=== PATIENT | female | born 1955 | race Caucasian/White ===

== ENCOUNTER 2022-10-15 08:57 | Emergency (ER) | payer OTHER, SELFPAY ==
[2022-10-15 09:03] VITALS: BP 170/79; PULSE 63; RESP 15; TEMP 36.5; O2SAT 99; BMI 27.7
--- NOTE | 2022-10-15 09:16 | ED.EXTPRO ---
HPI - Extremity Problem General Chief complaint: Extremity Problem,Nontraumatic Stated complaint: possible blood clot rt leg, sent by provider Time Seen by Provider: 10/15/22 09:02 Source: patient Mode of arrival: Ambulatory History of Present Illness HPI Narrative: 66-year-old female nonsmoker with no significant chronic medical history presents at the request of her primary care provider for evaluation of worsening right lower extremity pain and swelling. She states that she is been having pain and swelling for the past few days and denies any injury, recent travel or prior clot. She is had no fever or chills and denies other systemic complaints such as nausea, vomiting or diarrhea. She is had no chest pain, rapid heart rate or shortness of breath. She states the pain is worse when she ambulates and improves with rest. She had been seen and evaluated at an outside facility yesterday and had some blood work which was apparently unremarkable but there was a slightly elevated D-dimer and an ultrasound was obtained to rule out DVT which was unremarkable. After calling her primary care provider today stating that symptoms were she was directed here for evaluation. She does not have blood thinners or a known bleeding problems Related Data Previous Rx's Medication Instructions Recorded methocarbamol 500 mg tablet See Rx Instructions PO Q6-8H PRN 10/14/21 muscle spasm #10 tabs Allergies Allergy/AdvReac Type Severity Reaction Status Date / Time No Known Drug Allergies Allergy Verified 10/15/22 09:11 Review of Systems Review of Systems Narrative: GENERAL: Denies chills, fatigue, malaise, fever, sweats. HEENT: Denies sinus pain, ear pain, sore throat, difficulty swallowing, dizziness. RESPIRATORY: Denies dyspnea, cough, wheezing, hemoptysis, sputum. CARDIOVASCULAR: See HPI GASTROINTESTINAL: Denies nausea, vomiting, abdominal pain, diarrhea, constipation, melena. : Denies dysuria, frequency, incontinence, hematuria, urinary retention. MUSCULOSKELETAL: See HPI SKIN: Denies rash, skin lesions, or other NEUROLOGIC: Denies weakness, headache, numbness, change in speech, confusion, seizures, incoordination. PSYCHIATRIC: No concerning psychosocial issues. 12 point review of systems is negative except for those stated above Patient History Social History Smoking Status: Never smoker Smoking Status: Never smoker alcohol intake frequency: holidays/special occasions only Substance Use Type: does not use Exam Narrative Exam Narrative: GENERAL: [66] year old patient appears stated age. Well-developed patient, in mild distress. HEAD: Atraumatic. Normocephalic. EYES: Pupils equal round and reactive. Extraocular motions intact. No scleral icterus. No injection or drainage. ENT: Nose without bleeding, purulent drainage. Throat without erythema, tonsillar hypertrophy or exudate. Airway patent. NECK: Trachea midline. Non tender CARDIOVASCULAR: Regular rate and rhythm without murmurs, gallops, or rubs. RESPIRATORY: Clear to auscultation. Breath sounds equal bilaterally. No wheezes, rales, or rhonchi. GASTROINTESTINAL: Abdomen soft, non-tender, nondistended. EXTREMITIES: Right lower extremity swollen and most tender just superior to medial malleolus, there is ecchymosis noted and high suspicion of hematoma. Compartments are soft, neurovascularly intact. No knee pain, no pain, swelling or redness at any point, specifically no knee effusion, no medial thigh or lateral thigh pain, swelling, ecchymosis or erythema. BACK: Nontender without deformity or crepitance. No flank tenderness. NEURO: AOx3. SKIN: No rash or erythema of visible areas Initial Vital Signs Initial Vital Signs: Vital Signs Temperature 97.7 F 10/15/22 09:03 Pulse Rate 63 10/15/22 09:03 Respiratory Rate 15 10/15/22 09:03 Blood Pressure 170/79 H 10/15/22 09:03 Pulse Oximetry 99 10/15/22 09:03 Oxygen Delivery Method 10/15/22 09:03 Course Orders Ordered: ED Orders 10/15/22 09:28 BMP [Basic Metabolic Panel] Stat CBC Auto Diff [Complete Blood Count AUTO DIFF] Stat Prothrombin Time INR Stat 10/15/22 09:30 US periph venous low extrem rt Stat Vital Signs Vital signs: Vital Signs - 8 hr 10/15/22 09:03 Temperature 97.7 F Pulse Rate 63 Respiratory Rate 15 Blood Pressure 170/79 H Pulse Oximetry 99 Oxygen Delivery Method Room Air MDM - Extremity (Nontraumatic) Imaging Data US - DVT: Radiologist's Impression: [address] [address] Ultrasound Report Signed Patient: Nano Prieto MR#: [id number] : 1955 Acct:[id number] Age/Sex: 66 / F Date of Service: 10/15/22 Loc: ED Accession Number: [id number] ?? Procedure: US periph venous low extrem rt Ordering Provider: Rusty Peterson D.O. PROCEDURE:? US PERIPH VENOUS LOW EXTREM RT ? INDICATIONS:? WORSENING PAIN, EDEMA ? TECHNIQUE:? Real-time imaging, as well as color and pulse Doppler interrogation, were performed of the lower extremity deep veins from the inguinal ligament to the popliteal fossa.? ? COMPARISON:? None. ? FINDINGS:? The common femoral, femoral and popliteal veins are normally compressible, and free of intraluminal thrombus.? Color and pulse Doppler demonstrate normal phasic intraluminal flow.? There is normal augmentation response to distal compression maneuver. ? ? There is a heterogeneously hypoechoic and complex appearing collection within subcutaneous soft tissue of distal right lower leg near medial upper ankle level and measures up to 4.4 x 0.5 x 4.5 cm in size.? No internal vascularity. ? IMPRESSION:? 1. No evidence of DVT in visualized right lower extremity veins. 2. Possible soft tissue hematoma along medial aspect of upper ankle as above.? ? ? Dictated by: David Valentine M.D. on 10/15/2022 at 10:22 ? ? Approved by: David Valentine M.D. on 10/15/2022 at 10:24 ? [facility] Narrative Medical decision making narrative: CC: 66-year-old female presents for re-evaluation of right lower extremity pain, swelling and discoloration in the absence of trauma Complicating co-morbidities: Age Data collected from: Patient Medical records reviewed: Prior walk-in clinic note from 1 year ago reviewed Differential considered, but not limited to: DVT, hematoma, versus other Exam documented above, pertinent findings include: Right lower extremity pain, swelling, ecchymotic below-knee, neurovascularly intact, compartments soft Lab Test results independently reviewed as above. Pertinent findings: Imaging studies independently reviewed: Ultrasound demonstrates no DVT but findings consistent with hematoma Discussion: 66-year-old female without chronic medical history, no blood thinners and no systemic complaints has worsening pain and swelling with ecchymosis of right lower extremity, she denies any memorable trauma or injury. She had a recent evaluation with reassuring labs, slightly elevated D-dimer and ultrasound demonstrating no DVT. She has no findings above the knee, exam and ultrasound are certainly most consistent with hematoma, as stated compartments are soft and there is no evidence of compartment syndrome. There is no erythema, lymphangitis or systemic complaints to suggest infection. Labs are reassuring and no evidence of anemia, thrombocytopenia or coagulopathy Disposition: see below, along with detailed discharge instructions that have been reviewed with patient as well as indications for ED re-evaluation and additional outpatient follow up Discharge Plan Departure Patient Disposition: Home Clinical Impression: Hematoma of right lower leg Instructions: DI for Hematoma (Bruise) Activity Restrictions/Additional Instructions: *You have been diagnosed with [right lower extremity hematoma. As we discussed though this is clot it is not the type of clot that causes concern, it is within the tissue not within the vein and there is no indication for a specific treatments such as blood thinner.] *What to do: *Please continue to take your regular medications as directed. [ ] New medication prescriptions sent to your pharmacy: [ ] [ ] New medication written as a paper prescription [ ] No new medications given *Please follow up with your primary care provider in 2-3 days, call for an appointment. Let them know you were seen in the Emergency Department and that we ask that you be seen in follow up. We will electronically transmit a record of today's note if your PCP is in our system *If you do not have a primary care provider please contact the [facility] Resource line at [phone]. They will ask some questions about your medical history and help get you set up with a doctor in the community. *Return to Emergency Department if you should have any new, worsening or concerning symptoms, such as [fever greater than 101 F, shaking chills, worsening pain, persistent vomiting or other bothersome symptoms] Prescriptions: No Action methocarbamol 500 mg tablet See Rx Instructions PO Q6-8H PRN (Reason: muscle spasm) Qty: 10 0RF Rx Instructions: 1-2 tablets PO every 6-8 hours PRN; Referrals: Miscellaneous,DoctorMD [Primary Care Provider] - Stand Alone Forms: Patient Portal/API
--- NOTE | 2022-10-15 09:30 | DI.US.S_ITS ---
PROCEDURE: US PERIPH VENOUS LOW EXTREM RT INDICATIONS: WORSENING PAIN, EDEMA TECHNIQUE: Real-time imaging, as well as color and pulse Doppler interrogation, were performed of the lower extremity deep veins from the inguinal ligament to the popliteal fossa. COMPARISON: None. FINDINGS: The common femoral, femoral and popliteal veins are normally compressible, and free of intraluminal thrombus. Color and pulse Doppler demonstrate normal phasic intraluminal flow. There is normal augmentation response to distal compression maneuver. There is a heterogeneously hypoechoic and complex appearing collection within subcutaneous soft tissue of distal right lower leg near medial upper ankle level and measures up to 4.4 x 0.5 x 4.5 cm in size. No internal vascularity. IMPRESSION: 1. No evidence of DVT in visualized right lower extremity veins. 2. Possible soft tissue hematoma along medial aspect of upper ankle as above. Dictated by: David Valentine M.D. on 10/15/2022 at 10:22 Approved by: David Valentine M.D. on 10/15/2022 at 10:24
[2022-10-15 10:38] LABS: Add Manual Diff / Slide Review NO; Basophils Absolute Auto 0 /uL (0-100); Basophils Percent Auto 0.6 % (0-2); Eosinophils Absolute Auto 200 /uL (0-450); Eosinophils Percent Auto 3.5 % (2-4); Hematocrit 34.9 % (36-46); Hemoglobin 11.5 g/dL (12.0-16.0); Lymphocytes Absolute Auto 1300 /uL (1100-4500); Lymphocytes Percent Auto 29.3 % (25-40); Mean Corpuscular HGB Conc 32.8 % (30-36); Mean Corpuscular Hemoglobin 28.1 PG (26-34); Mean Corpuscular Volume 85.6 fL (80-100); Monocytes Absolute Auto 500 /uL (0-900); Monocytes Percent Auto 10.4 % (3-14); Neutrophils Absolute Auto 2400 /uL (1500-7000); Neutrophils Percent Auto 56.2 % (50-75); Platelet Count 156 X10^3/uL (150-400); Red Blood Cell Count 4.08 X10^6/uL (4.0-5.2); Red Cell Distribution Width 14.2 % (11.6-14.8); White Blood Cell Count 4.4 X10^3/uL (4.5-11.0)
[2022-10-15 11:05] LABS: INR 1.1 (0.9-1.3); Prothrombin Time 12.3 SECONDS (10.1-12.7)
[2022-10-15 11:15] LABS: BUN Creatinine Ratio 15.9 (6-22); Blood Urea Nitrogen 11 mg/dL (7-17); Calcium 9.1 mg/dL (8.4-10.2); Carbon Dioxide 27 mmol/L (22-32); Chloride 107 mmol/L (98-107); Estimated Glomerular Filt Rate > 60 mL/min (>60); Glucose 90 mg/dL (80-110); HEMOLYSIS < 15 (0-50); Potassium 4.2 mmol/L (3.4-5.1); Sodium 138 mmol/L (137-145)
[2022-10-15 11:21] VITALS: BP 164/88; PULSE 62; RESP 18; O2SAT 100
== END 2022-10-15 11:23 | disposition home or self-care (01) ==
PROVIDERS: Emergency Provider Emergency Medicine
DX: S80.11XA Contusion of right lower leg, initial encounter (principal); R79.89 Other specified abnormal findings of blood chemistry
CPT/HCPCS: 80048; 85025; 85610; 93971; 99281; 99284

== ENCOUNTER → 2022-11-25 17:02 | Outpatient (CLI) | payer OTHER, SELFPAY ==
[2022-11-25 18:05] LABS: Influenza A - CEPHEID Flu A NEGATIVE (NEGATIVE); Influenza B - CEPHEID Flu B NEGATIVE (NEGATIVE); Respiratory Syncytial Virus Negative (Negative)
[2022-11-25 18:14] LABS: COVID-19 CEPHEID 4-PLEX PCR Negative (Negative)
== END ==
PROVIDERS: Visit Provider Physician Assistant
DX: J06.9 Acute upper respiratory infection, unspecified (principal)
CPT/HCPCS: 0241U

== ENCOUNTER → 2023-12-09 09:47 | Outpatient (CLI) | payer OTHER, SELFPAY ==
--- NOTE | 2023-12-09 09:49 | DI.RAD.S_ITS ---
PROCEDURE: XR DEXA AXIAL SKELETON INDICATIONS: screening for osteoporosis COMPARISON: None. FINDINGS: Lumbar Spine: Bone mineral density 1.094 g/cm2, T score 0.4. Left Hip: Bone mineral density 0.821 g/cm2, T score -1.0. Left Femoral Neck: Bone mineral density 0.652 g/cm2, T score -1.8. Right Hip: Bone mineral density 0.753 g/cm2, T score -1.5. Right Femoral Neck: Bone mineral density 0.619 g/cm2, T score -2.1. Fracture Risk Calculation (when applicable): 10-year fracture risk of a major osteoporotic fracture 15% and of a hip fracture 2.7%. (T score greater or equal to -1.0 to: NORMAL) (T score from -1.1 to -2.4: OSTEOPENIA) (T score less than or equal to -2.5: OSTEOPOROSIS) IMPRESSION: Osteopenia. Dictated by: Anibal Govea M.D. on 12/10/2023 at 11:14 Approved by: Anibal Govea M.D. on 12/10/2023 at 11:15
== END ==
LOC: RAD 09:48
PROVIDERS: Referring Provider Nurse Practitioner; Visit Provider Nurse Practitioner
DX: Z13.820 Encounter for screening for osteoporosis (principal); M85.89 Other specified disorders of bone density and structure, multiple sites
CPT/HCPCS: 77080

== ENCOUNTER → 2024-03-15 16:42 | Outpatient (CLI) | payer OTHER, SELFPAY ==
--- NOTE | 2024-03-15 16:47 | DI.RAD.S_ITS ---
PROCEDURE: XR WRIST LT MIN 3V INDICATIONS: L WRIST INJURY TECHNIQUE: 4 views of the wrist were acquired. COMPARISON: None. FINDINGS: Bones: No fractures or dislocations. No suspicious bony lesions. Mild osteoarthritic changes within the carpal joints and carpal metacarpal joints. Soft tissues: No suspicious soft tissue calcifications. IMPRESSION: No acute bony abnormality. Dictated by: Patrice Quinonez M.D. on 03/16/2024 at 9:38 Approved by: Patrice Quinonez M.D. on 03/16/2024 at 9:46
== END ==
PROVIDERS: PCP Nurse Practitioner; Referring Provider Nurse Practitioner; Visit Provider Nurse Practitioner
DX: M25.532 Pain in left wrist (principal)
CPT/HCPCS: 73110

== ENCOUNTER → 2024-08-24 12:31 | Outpatient (CLI) | payer BC, SELFPAY ==
--- NOTE | 2024-08-24 12:32 | DI.RAD.S_ITS ---
PROCEDURE: XR WRIST RT MIN 3V INDICATIONS: Ground level fall TECHNIQUE: 3 views of the wrist were acquired. COMPARISON: [facility], CR, XR WRIST LT MIN 3V, 03/15/2024, 16:50. FINDINGS: Bones: Mildly impacted and dorsally angulated distal radius fracture. Mild thumb base degenerative changes. Soft tissues: Soft tissue swelling. IMPRESSION: Distal radius fracture. Dictated by: Jeff Frost M.D. on 08/24/2024 at 12:01 Approved by: Jeff Frost M.D. on 08/24/2024 at 12:02
== END ==
PROVIDERS: PCP Nurse Practitioner; Referring Provider Nurse Practitioner Family; Visit Provider Nurse Practitioner Family
DX: S52.501A Unspecified fracture of the lower end of right radius, initial encounter for closed fracture (principal); M25.531 Pain in right wrist; W18.30XA Fall on same level, unspecified, initial encounter
CPT/HCPCS: 73110